=== PATIENT | female | born 1965 | race Caucasian/White ===

== ENCOUNTER 2019-06-09 05:42 | Day surgery (SDC) | payer BC ==
[~2019-06-09 05:42] MED LIST: Buffered Lidocaine 1% SYRIN* 1 ML/SYRINGE INTRADERM ONE
[2019-06-09] MEDS ORDERED: Lactated Ringers 1000 ML Bag* 1,000 ML IV SCH (06:00)
[2019-06-09] MEDS ORDERED: Buffered Lidocaine 1% SYRIN* 1 ML/SYRINGE INTRADERM ONE (06:03)
[2019-06-09] MEDS ORDERED: Rocuronium* 10 MG/ML VIAL ONE (06:31)
[2019-06-09] MEDS ORDERED: Succinylcholine* 20 MG/ML 10 ML VIAL ONE (06:31)
[2019-06-09] MEDS ORDERED: Naloxone* 0.4 MG/ML 1 ML VIAL IV PRN (06:58)
[2019-06-09 08:40] VITALS: BP 101/58
== END 2019-06-09 08:59 | disposition home or self-care (01) ==
LOC: OR 05:42
PROVIDERS: ATTEND Nurse Practitioner
DX: M50.123 Cervical disc disorder at C6-C7 level with radiculopathy (principal); M47.892 Other spondylosis, cervical region; Z87.891 Personal history of nicotine dependence; G89.29 Other chronic pain; F40.240 Claustrophobia
CPT/HCPCS: 72141; J0330